=== PATIENT | female | born 1945 ===

== ENCOUNTER 2022-12-05 04:00 | Inpatient (IN) | payer OTHER ==
[~2022-12-05] VITALS: Ht 157.5 cm; Wt 66.2 kg
[~2022-12-05 04:00] MED LIST: ACTONEL150 MG PO; BONIVA150 MG PO; FENOFIBRATE150 MG PO; PEPCID AC20 MG PO; PROTONIX40 MG PO; PROZAC20 MG PO; ZOCOR40 MG PO
[2022-12-05] MEDS ORDERED: ST. JOSEPH ASPI81 M2 (16:28)
== END 2022-12-06 12:27 | disposition home or self-care (01) | DRG 328 ==
LOC: CIR.AMB 04:00 → SURG 07:45 → EDSTATUS 07:45 → O/R 13:43 → SURG 13:53
PROVIDERS: Internal Medicine; ADMIT Surgery; ATTEND Surgery
PROC: 8E0W4CZ Robotic Assisted Procedure of Trunk Region, Percutaneous Endoscopic Approach (ICD-10-PCS; 2022-12-05)
PROC: 0BQT4ZZ Repair Diaphragm, Percutaneous Endoscopic Approach (ICD-10-PCS; principal; 2022-12-05 07:00)
DX: K44.9 Diaphragmatic hernia without obstruction or gangrene (principal); Z20.822 Contact with and (suspected) exposure to COVID-19
CPT/HCPCS: 43281; S2900